=== PATIENT | male | born 1985 | race Caucasian/White ===

== ENCOUNTER → 2017-07-07 | Outpatient (CLI) | payer OTHER ==
[~2017-07-07] VITALS: Ht 182.9 cm; Wt 142.9 kg
[2017-07-07 14:34] VITALS: BP 152/95; PULSE 98; Ht 182.9 cm; Wt 142.9 kg
== END | disposition home or self-care (01) ==
LOC: C.NEUR 14:18
PROVIDERS: ATTEND Internal Medicine Pulmonary Disease
DX: I10 Essential (primary) hypertension (principal); E66.9 Obesity, unspecified; G47.19 Other hypersomnia; R06.83 Snoring; R06.81 Apnea, not elsewhere classified

== ENCOUNTER → 2017-07-24 | Outpatient (CLI) | payer OTHER ==
--- NOTE | 2017-07-25 06:09 | SPLIT NIGHT TECHNICIAN REPORT ---
[facility] Split Night Polysomnogram - River Guide Report Study date: 07/24/2017 Referring Physician: Sarbjit Rose M.D. Name: SILAS RENNER River Guide: BROOKE Oneal. Date of : 1985 Height: 31 years, Height 6' 0" Sex: Male Weight: 315 lbs Age: 31 Neck Circum: 19.5 in BMI: Medications: 42.72 CHLORTHALIDONE 25 MG, FLONASE, MELATONIN 1 MG, MUCINEX, PROVENTIL HFA 108 (90 BASE) MCG/ACT Patient History 31 yr-old male here for a baseline/split study. He has a history of loud snoring and witnessed apneas. His [place] scale is 6. The test was started on room air. ETCO2 testing was not utilized during this study. Room 3 Parameters Monitored NPSG: E1-M2, E2-M1, Fp1-M2, Fp2-M1, F3-M2, F4-M2, F4-M1, C3-M2, C4-M2, C4-M1, O1-M2, O2-M2, O2-M1, T3-M2, T4-M1, P3-M2, P4-M1, CHIN1, CHIN2, HR, EKG, Legs, PFLOW, SNOR, FLOW, CFLOW, Tidal Volume, THOR, ABDO, SpO2, PLTH, CPRESS, ETCO2 Wave, ETCO2, pH SLEEP SUMMARY DATA DIAGNOSTIC TREATMENT Lights Out: 10:28:30 PM 12:59:30 AM Lights On: 12:34:30 AM 5:30:30 AM Total Recording Time (TRT): 126.0 min. 271.0 min. Total Sleep Time (TST): 75.0 min. 144.5 min. NREM Time: 75.0 min. 119.0 min. REM Time: 0.0 min. 25.5 min. Sleep Period Time (SPT): 99.5 min. 229.5 min. Sleep Efficiency (SE): 60 % 53 % Sleep Latency: 25.5 min. 41.5 min. Arousal Index: 30.4 11.6 PAP Treatment Levels: 4, 6, 7 * Optimal Pressure(s) SLEEP STAGING DATA DIAGNOSTIC TREATMENT Duration (min) TST % Duration (min) TST % Stage Wake: 51.0 min. -- 126.5 min. -- WASO: 25.5 min. -- 85.0 min. -- NREM: 75.0 min. 100 % 119.0 min. 82 % Stage N1: 22.0 min. 29 % 21.0 min. 15 % Stage N2: 35.5 min. 47 % 61.5 min. 43 % Stage N3: 17.5 min. 23 % 36.5 min. 25 % REM: 0.0 min. 0 % 25.5 min. 18 % POSITIONAL DATA Event Count Index Event Count Index Supine: 16 78.0 9 54.0 Supine NREM: 16 78.0 9 54.0 Supine REM: N/A N/A N/A N/A Non-Supine: 45 41.5 15 6.7 Non-Supine NREM: 45 41.5 15 8.3 Non-Supine REM: N/A N/A 0 0.0 AROUSAL SUMMARY DATA: Event Count Index Event Count Index Apnea Arousals: 2 6.4 3 2.9 Hypopnea Arousals: 14 11.2 7 2.9 Snore Arousals: 6 4.8 1 0.4 PLM Arousals: 0 0.0 0 0.0 Non-Specific Arousals: 11 8.8 19 7.9 Total Arousals: 38 30.4 28 11.6 MYOCLONUS (PLM) Event Count Index Event Count Index PLM: 0 0.0 0 0.0 PLM AROUSAL: 0 0.0 0 0.0 PLM W/O AROUSAL 0 0.0 0 0.0 PLM W/RESP EVENT 0 0.0 0 0.0 MYOCLONUS (PLM) Event Count Index Event Count Index LM: 2 11.2 2 0.8 LM AROUSAL: 2 1.6 0 0.0 LM W/O AROUSAL LM W/RESP EVENT LM NON SPECIFIC 8 6.4 0 0.0 HEART RATE DATA DIAGNOSTIC TREATMENT Sleep (bpm): 93 81 REM (bpm): N/A 93 NREM (bpm): 91 93 Tachycardia Count: 0 0 Tachycardia Duration: 0.00 0 Bradycardia Count: 0 0 Bradycardia Duration: 0.00 0 DIAGNOSTIC PORTION TREATMENT PORTION RESPIRATORY DATA Event Count Index Event Count Index AHI: -- 46.4 -- 10.0 RDI: -- 48.8 -- 10 Obstructive Apnea: 8 6.4 5 2.1 Central Apnea: 0 0.0 2 0.8 Mixed Apnea: 0 0.0 0 0.0 Hypopnea: 50 40.0 17 7.1 RERA: 3 2.4 0 0.0 Total Apneas: 8 6.4 7 2.9 RESPIRATORY DATA REM NREM SLEEP REM NREM SLEEP Supine Position: Obstructive Apneas: N/A 1 1 N/A 5 5 Central Apneas: N/A 0 0 N/A 0 0 Mixed Apneas: N/A 0 0 N/A 0 0 Hypopneas: N/A 12 12 N/A 4 4 RERA N/A 3 3 N/A 0 0 Total Supine Events: N/A 16 16 N/A 9 9 Supine AHI: N/A 78.0 78.0 N/A 54.0 54.0 Supine RDI: N/A 96.0 96.0 N/A 54.0 54.0 REM NREM SLEEP REM NREM SLEEP Non-Supine Position: Obstructive Apneas: N/A 7 7 0 0 0 Central Apneas: N/A 0 0 0 2 2 Mixed Apneas: N/A 0 0 0 0 0 Hypopneas: N/A 38 38 0 13 13 RERA N/A 0 0 0 0 0 Total Supine Events: N/A 45 45 0 15 15 Supine AHI: N/A 41.5 41.5 0.0 8.3 6.7 Supine RDI: N/A 41.5 41.5 0.0 8.3 6.7 OXYGEN DESTAURATION DATA: Event Count Index Event Count Index REM Desaturations: N/A N/A 1 2.4 NREM Desaturations: 70 56.0 44 22.2 SNORE DATA DIAGNOSTIC TREATMENT Snore Time: 3.8 1:41:00 AM Snore TST%: 3 3 Snore Arousal Count: 6 1 Snore Arousal Index: 4.8 0.4 Desaturation Event Summary: Minimum %SpO2 Event Count Mean/Min/Max Duration(sec.) Desaturation Index % Time In Bed > 90 192 20.6 / 6.3 / 60.0 35.0 85.9 86 - 90 20 18.0 / 8.8 / 36.3 28.3 11.1 81 - 85 0 N/A 0.0 2.2 76 - 80 0 N/A 0.0 0.8 71 - 75 0 N/A 0.0 0.0 66 - 70 0 N/A 0.0 0.0 61 - 65 0 N/A 0.0 0.0 56 - 60 0 N/A 0.0 0.0 51 - 55 0 N/A 0.0 0.0 < 50 0 N/A 0.0 0.0 OXYGEN SATURATION DATA DIAGNOSTIC TREATMENT SpO2 Mean Sleep: 91 % 93 % SpO2 Mean REM: N/A % 93 % SpO2 Mean NREM: 91 % 93 % SpO2 Minimum Sleep: 77 % 83 % SpO2 Minimum REM: N/A % 90 % SpO2 Minimum NREM: 77 % 83 % Time Below 90% (TST): 15.6 6.8 Time Below 88% (TST): 10.2 2.5 Total REM NREM Awake <50% 0.0 min. 0.0 min. 0.0 min. 0.0 min. 51 - 60% 0.0 min. 0.0 min. 0.0 min. 0.0 min. 61 - 70% 0.0 min. 0.0 min. 0.0 min. 0.0 min. 71 - 80% 3.2 min. 0.0 min. 2.2 min. 1.0 min. 81 - 90% 50.7 min. 0.2 min. 28.2 min. 22.3 min. 91 - 100% 329.2 min. 25.3 min. 163.6 min. 140.4 min. Average 93 93 92 93 Minimum SpO2 77 90 77 77 Desaturation Event Index 29.3 2.4 35.3 27.0 # Desat. Events below 89% 118 N/A 77 41 Time(%) with Saturation below 89% 7.2 0.0 4.3 2.9 Time(min.) with Saturation below 89% 27.6 0.0 16.6 11.0 Recording River Guide Comments: Mr. Renner slept in the right, left, supine and prone positions. No cardiac arrhythmias or PLMs noted. No bruxism noted. Snoring was noted and scored as a 3 on a scale of 1 through 5. (0=no snoring, 5=snoring loud enough to be heard through a closed door or down the means way). At 1:00 am, he met specific Split-Night criteria during the diagnostic portion of this study. CPAP was initiated at +4 CMH2O and up-titrated to a level of +7 CMH2O, Cflex 2. He had some difficulty with tolerating the mask. He wore a full face and a nasal mask. he ended the study with a nasal mask. A Mirage FX Soft edge nasal mask size standard was used during titration. He awoke to use the restroom one time during the night. Mr. Renner stated that he did not sleep as well as usual. The final report will be interpreted and signed by a sleep physician. The completed physician report will then be placed in the patient medical record. Therapy Event: Therapy (cm H20) 0 4 6 7 Total Time at Pressure (min.) 126.0 56.8 148.9 65.3 TST at Pressure (min.) 75.0 10.3 70.4 63.8 # Periods 1 1 1 1 Sleep Onset (min.) 25.5 41.5 0.0 0.0 REM Onset (min.) N/A N/A N/A 8.3 Sleep Efficiency % 59 18 47 97 Wakefulness (%) 40.5 81.8 52.7 2.3 Wakefulness (min.) 51.0 46.5 78.5 1.5 NREM 1 (%) 17.5 8.8 9.1 3.8 NREM 1 (min.) 22.0 5.0 13.5 2.5 NREM 2 (%) 28.2 9.4 18.4 44.1 NREM 2 (min.) 35.5 5.3 27.4 28.8 NREM 3 (%) 13.9 0.0 19.8 10.7 NREM 3 (min.) 17.5 0.0 29.5 7.0 REM (%) 0.0 0.0 0.0 39.0 REM (min.) 0.0 0.0 0.0 25.5 # Arousals 38 5 21 2 Arousal Index 30.4 29.1 17.9 1.9 # Snore 167 4 25 47 Snore Index 133.6 23.3 21.3 44.2 AHI 46.4 58.2 11.9 0.0 AHI Supine 78.0 N/A 54.0 N/A AHI Non-Supine 41.5 58.2 5.0 0.0 NREM AHI 46.4 58.2 11.9 0.0 REM AHI N/A N/A N/A 0.0 RDI 48.8 58.2 11.9 0.0 # Obstructive 8 0 5 0 # Central Ap 0 2 0 0 # Mixed 0 0 0 0 # Hypopneas 50 8 9 0 RERAS 3 0 0 0 Total Respiratory Events 61 10 14 0 Time Below SpO2 89.00% (min.) 12.4 1.5 2.7 0.0 Mean NREM SpO2 (%) 91 91 93 93 Mean REM SpO2 (%) N/A N/A N/A 93 Mean Sleep SpO2 (%) 91 91 93 93 Min NREM SpO2 (%) 77 84 83 91 Min REM SpO2 (%) N/A N/A N/A 90 Position Supine (min.) 10.0 0.0 10.0 0.0 Position Non-supine (min.) 65.0 10.3 60.4 63.8 LM Index Sleep 11.2 11.6 0.0 0.0 LM Index NREM 11.2 11.6 0.0 0.0 LM Index REM N/A N/A N/A 0.0 Mean Heart Rate (bpm) 93 78 78 83 Min Heart Rate (bpm) 81 69 65 72 CPAP REPORT Therapy Detail Time / Page # Comment CPAP 4 cm H2O Nasal Mask Flex Pressure Relief Humidifier on 12:59:10 AM / pg. 469 HE HAS NOT HAD OVER 2 HOURS OF SLEEP BUT HIS TEST HAS RUN FOR OVER 2 HOURS. HIS AHI IS ABOVE 5 (MODIFIED BY DOCTOR'S ORDER). CPAP 6 cm H2O Nasal Mask Flex Pressure Relief Humidifier on 1:56:19 AM / pg. 583 INCREASED FOR HYPOPNEAS CPAP 7 cm H2O Nasal Mask Flex Pressure Relief Humidifier on 4:25:10 AM / pg. 881 INCREASED FOR HYPOPNEAS
--- NOTE | 2017-07-26 16:32 | POLYSOMNOGRAPH REPORT ---
CLINICAL DATA: 31-year-old male with a BMI of 42.7 referred by myself and Dr. Briggs for split night sleep study. He has loud snoring and witnessed apnea. His [place] sleepiness score 6/24. SLEEP ARCHITECTURE: For the diagnostic portion of the study, total sleep period time was 99.5 minutes. Total sleep time was 75 minutes- all non-REM sleep. Sleep latency was 25.5 minutes. Sleep efficiency was 60%. Sleep consisted of stage N1 29%, stage N2 47%, stage N3 23%. For the treatment portion of the study, sleep period time was 229.5 minutes. Total sleep time was 144.5 minutes divided between 119 minutes of non-REM sleep and 25.5 minutes of REM sleep. Sleep latency was delayed at 41.5 minutes. Sleep efficiency was reduced to 53%. Sleep consisted of stage N1 15%, stage N2 42%, stage N3 25%, and REM 18%. AROUSAL DATA: Prior to treatment, 38 arousals were recorded for an index of 30.4 per hour. During treatment, 28 arousals were recorded for an index of 11.6 per hour. PLM DATA: Prior to treatment, 8 limb movements during sleep were noted for an index of 6.4 per hour. During treatment, 2 limb movements during sleep were noted for an index of 0.8 per hour. EKG: Heart rates ranged from 81 and 93 beats per minute. No arrhythmias were noted. RESPIRATORY DATA: Severe sleep apnea was diagnosed prior to treatment. The diagnostic AHI was 46.4. There were 8 obstructive apneic episodes and 50 hypopneic episodes. The average AHI during treatment was 10. There were 5 obstructive and 2 central apneic episodes and 17 hypopneic episodes. OXIMETRY DATA: Nocturnal hypoxemia was seen prior to treatment. Oxygen izzy was 77% during non-REM sleep. The mean saturation with treatment was 93%. BAKER CHEF'S COMMENTS AND TREATMENT SUMMARY: The patient slept in the right, left, supine, and prone positions. Snoring was rated as moderate, 3 on a scale of 1-5. At 1:00 a.m., he met split night criteria. He used a Mirage FX soft edge nasal mask size standard. He had some difficulty tolerating CPAP. He was titrated up to 7 cm of water pressure, C-Flex setting #3. At his final pressure setting, he slept for 63.8 minutes with an AHI of 0. IMPRESSION: Severe sleep apnea/hypopnea with diagnostic AHI of 46.4 corrected with CPAP 7 cm of water pressure, C-flex 2 -Mirage FX soft edge nasal mask size standard. RECOMMENDATIONS: The patient should be started on the above noted treatment regimen and seen back in followup within 90 days to document efficacy and compliance. MTDD
== END | disposition home or self-care (01) ==
LOC: C.NEUR 21:00
PROVIDERS: ATTEND Internal Medicine Pulmonary Disease
DX: G47.33 Obstructive sleep apnea (adult) (pediatric) (principal); I10 Essential (primary) hypertension